=== PATIENT | male | born 1950 | race Caucasian/White ===

== ENCOUNTER 2018-05-13 18:10 | Emergency (ER) | payer MEDICARE, OTHER ==
[~2018-05-13] VITALS: Ht 182.9 cm; Wt 84.8 kg
[~2018-05-13 18:10] MED LIST: AMIL5TAB9; FURO-150; TERA2CAP18
[2018-05-13 18:15] VITALS: BP_SYST 126
--- NOTE | 2018-05-13 18:15 | NUR ---
Placed in room 02 . Placed on laboratory monitor, blood pressure machine and pulse oximeter. To gown for exam. Side rails up.
--- NOTE | 2018-05-13 18:17 | NUR ---
Pt AAOx4 BIB [facility] c/o 07/22 non radiating epigastric pain x 6 hours. Was given NTG en route with mild relief. Skin pink dry and warm, breathing even and unlabored. No other injuries/complaints per pt/noted. Will continue to monitor.
--- NOTE | 2018-05-13 18:19 | NUR ---
NORBERTO VILLEDA at bedside examining patient.
[2018-05-13] MEDS ORDERED: MAG HYDROX/AL HYDROX/SIMETH 30 ML, BELLADONNA ALKALOIDS/PHENOBARB 10 ML, LIDOCAINE VISC... PO ONE ×3 (18:30)
--- NOTE | 2018-05-13 18:30 | NUR ---
GI Cocktail administered. Pt tolerated well. No adverse reactions noted.
[2018-05-13] MEDS ORDERED: [UNRECOGNIZED DRUG - OTHER] PO (18:33)
[2018-05-13] MEDS ORDERED: LEVO175T7 PO (18:33)
[2018-05-13] MEDS ORDERED: ALEN10TA6 PO (18:33)
[2018-05-13] MEDS ORDERED: TACR0.5C PO (18:33)
[2018-05-13] MEDS ORDERED: INSU500I SQ (18:33)
[2018-05-13] MEDS ORDERED: ZENPEP PO (18:33)
[2018-05-13] MEDS ORDERED: MULT1CAP34 PO (18:33)
[2018-05-13] MEDS ORDERED: INSU100V9 SQ (18:33)
--- NOTE | 2018-05-13 18:33 | NUR ---
Medication reconciliation completed with information provided by patient. Any prior medication reconciliation on file was reviewed and corrected.
--- NOTE | 2018-05-13 18:35 | NUR ---
Urinal provided per request
[2018-05-13 18:39] LABS: HEMOGLOBIN 12.8 g/dL (14.0-18.0); RED BLOOD CELL COUNT(AUTO) 4.17 MIL/uL (4.2-6.2); WHITE BLOOD COUNT (AUTO) 5.2 K/uL (4.8-10.8)
[2018-05-13 18:40] LABS: HEMATOCRIT 36.8 % (36-54); MEAN CORPUSCULAR HEMOGLOBIN 31 pg (27-31); MEAN CORPUSCULAR HGB CONC 35 % (32-36); MEAN CORPUSCULAR VOLUME 88 fL (79.0-98.0); PLATELET COUNT (AUTO) 142 K/uL (130-430); RED CELL DISTRIBUTION WIDTH 13.2 % (9.0-15.0)
[2018-05-13 18:41] LABS: BASOPHILS # (AUTO) 0.1 K/uL (0.0-0.2); BASOPHILS % (AUTO) 1.4 % (0.0-2.0); EOSINOPHILS # (AUTO) 0.2 K/uL (0.0-0.4); EOSINOPHILS % (AUTO) 3.1 % (0.0-4.0); LYMPHOCYTES # (AUTO) 1.1 K/uL (1.0-5.5); LYMPHOCYTES % (AUTO) 21.3 % (20.5-51.5); MONOCYTES # (AUTO) 0.4 K/uL (0.0-1.0); MONOCYTES % (AUTO) 7.9 % (1.7-9.3); NEUTROPHILS # (AUTO) 3.4 K/uL (1.8-7.7); NEUTROPHILS % (AUTO) 66.3 % (40.0-70.0)
--- NOTE | 2018-05-13 18:45 | NUR ---
Radiology at bedside for CXR
[2018-05-13 18:54] LABS: ANION GAP 7 (5-15); CALCIUM 8.2 mg/dL (8.4-11.0); CHLORIDE 104 mmol/L (98-107); CREATININE 1.61 mg/dL (0.55-1.30); GLUCOSE 265 mg/dL (70-99); POTASSIUM 4.8 mmol/L (3.5-5.1); SODIUM SERUM 140 mmol/L (136-145); UREA NITROGEN, BLOOD 27 mg/dL (8-21)
[2018-05-13 18:56] LABS: GFR AFRICAN AMERICAN 55 mL/min (>90)
[2018-05-13] MEDS ORDERED: INSULIN REGULAR, HUMAN 10 UNITS/0.1 ML INJ SUBCUT ONE (19:00)
[2018-05-13] MEDS ORDERED: NACL 0.9% 1,000 ML IV ONE (19:00)
[2018-05-13 19:02] LABS: ALANINE AMINOTRANSFERASE 21 U/L (12-78); ALBUMIN 3.2 g/dL (3.4-4.8); ASPARTATE AMINOTRANSFERASE 24 U/L (10-37); TOTAL BILIRUBIN 0.6 mg/dL (0.0-1.0)
--- NOTE | 2018-05-13 19:09 | NUR ---
1L NS IV bolus administered, 3 units Regular Insulin SQ to abdomen administered. PT tolerated well. No adverse reactions noted.
--- NOTE | 2018-05-13 19:10 | NUR ---
Care endorsed to Georgie BYERS.
--- NOTE | 2018-05-13 19:20 | NUR ---
Pt states, "I am not in any pain right now." ER made aware.
--- NOTE | 2018-05-13 19:35 | NUR ---
MT spoke to [place] for transfer
--- NOTE | 2018-05-13 19:46 | NUR ---
Asked pt if he is able to provide urine. Pt states that he cannot go at this time.
--- NOTE | 2018-05-13 21:55 | NUR ---
Patient to be transferred to [facility]. Is being transferred due to higher level of care. Receiving facility has accepting physician and available space. ER physician has signed transfer form. Patient or responsible democrat has agreed to transfer and signed form. Patient belongings inventoried and will be sent with patient. Copy of nursing notes, lab reports, EKG, Physicians Orders and X-rays to be sent with patient. Report called to Enmanuel BYERS at receiving facility. Receiving physician is Dr. Rich. [facility] ambulance service has been called for transfer. ETA is now.
[2018-05-13 22:05] VITALS: BP_SYST 119
--- NOTE | 2018-05-13 22:05 | NUR ---
Pt picked up by [facility]. Pt in stable condition, IV patent and saline flushed. No signs of acute distress.
== END 2018-05-13 22:05 | disposition short-term general hospital (02) ==
LOC: SED 18:10
DX: R07.89 Other chest pain (principal); E11.9 Type 2 diabetes mellitus without complications; R03.0 Elevated blood-pressure reading, without diagnosis of hypertension; Z88.6 Allergy status to analgesic agent; Z79.899 Other long term (current) drug therapy
CPT/HCPCS: 36415; 71045; 80053; 82962; 83690; 83880; 84484; 85025; 93005; 96372; 99285; J2001; J7030; J1815